=== PATIENT | female | born 1950 | race Two or more races ===

== ENCOUNTER 2017-10-28 14:07 | Observation (INO) | payer MEDICARE, MEDICAID ==
[~2017-10-28] VITALS: Ht 152.4 cm; Wt 74.2 kg
[~2017-10-28 14:07] MED LIST: DICL75TA2 PO; DULO30CA2 PO; HYDR25TA6 PO; LOSA1TAB19 PO; LOSA50TA2 PO; METO25TA35 PO; OMEP40CA6 PO
[2017-10-28] MEDS ORDERED: MORPHINE SULFATE 4 MG/ML, 1ML ONE ×2 (14:46→15:20)
[2017-10-28 14:47] LABS: BASOPHILS # (AUTO) 0.08 x10^3/uL (0-0.1); BASOPHILS % (AUTO) 1 % (0-1); EOSINOPHILS # (AUTO) 0.22 x10^3/uL (0-0.4); EOSINOPHILS % (AUTO) 2 % (1-7); LYMPHOCYTES # (AUTO) 2.49 x10^3/uL (1-3.4); LYMPHOCYTES % (AUTO) 26 % (22-44); MD NO; MEAN CORPUSCULAR HEMOGLOBIN 28.8 pg (27.0-34.8); MEAN CORPUSCULAR HGB CONC 33.5 g/dL (32.4-35.8); MEAN CORPUSCULAR VOLUME 85.8 fL (80-100); MEAN PLATELET VOLUME 8.4 fL (7.4-10.4); MONOCYTES % (AUTO) 4 % (2-9); NEUTROPHILS # (AUTO) 6.38 x10^3/uL (1.8-6.8); NEUTROPHILS % (AUTO) 67 % (42-75); PLATELET COUNT 292 x10^3/uL (130-400); RED BLOOD COUNT 4.53 x10^6/uL (3.82-5.3); RED CELL DISTRIBUTION WIDTH 13.3 % (9.6-15.2)
[2017-10-28] MEDS ORDERED: ONDANSETRON 2MG/ML, 2ML ONE (14:47)
[2017-10-28] MEDS ORDERED: ASPIRIN 81 MG TABLET CHEW ONE (14:47)
[2017-10-28] MEDS: MORPHINE SULFATE 4 MG/ML, 1ML IVPush PRN ×2 (14:53→15:23)
[2017-10-28 14:58] LABS: ALANINE AMINOTRANSFERASE 29 U/L (12-78); ALBUMIN 3.7 g/dL (3.4-5.0); ANION GAP 12 mmol/L (5-15); CALCIUM 8.5 mg/dL (8.5-10.1); CHLORIDE 108 mmol/L (98-107)
[2017-10-28] MEDS ORDERED: SODIUM CHLORIDE FLUSH 10ML SYR IVF ONE (15:00)
[2017-10-28] MEDS ORDERED: ASPIRIN 81 MG TABLET CHEW PO ONE (15:00)
[2017-10-28] MEDS ORDERED: ONDANSETRON 2MG/ML, 2ML IVPush ONE (15:00)
[2017-10-28 15:03] LABS: ALKALINE PHOSPHATASE 97 U/L (45-117); BILIRUBIN,TOTAL 0.5 mg/dL (0.2-1.0); CREATININE 0.77 mg/dL (0.55-1.02); TOTAL PROTEIN 7.4 g/dL (6.4-8.2); TROPONIN I < 0.015 ng/mL (0.000-0.045)
[2017-10-28] MEDS ORDERED: GABA300C10 PO (15:14)
[2017-10-28] MEDS ORDERED: LISI5TAB7 PO (15:15)
[2017-10-28] MEDS ORDERED: ZOLP-413 PO (15:15)
[2017-10-28] MEDS ORDERED: HYDR25TA11 PO (15:16)
[2017-10-28] MEDS ORDERED: DIAZ5TAB4 PO (15:17)
[2017-10-28] MEDS ORDERED: DULO60CA55 PO (15:18)
[2017-10-28] MEDS ORDERED: KETOROLAC 30 MG/1 ML ONE (16:16)
[2017-10-28] MEDS ORDERED: CYCLOBENZAPRINE 10 MG TABLET ONE (16:16)
[2017-10-28] MEDS ORDERED: KETOROLAC 30 MG/1 ML IVPush ONE (16:30)
[2017-10-28] MEDS ORDERED: CYCLOBENZAPRINE 10 MG TABLET PO ONE (16:30)
[2017-10-28] MEDS ORDERED: HYDROmorphone 1 MG/ML, 1ML ONE (17:24)
[2017-10-28] MEDS ORDERED: HYDROmorphone 1 MG/ML, 1ML IV ONE (17:30)
[2017-10-28 18:40] VITALS: BP 153/71
[2017-10-28 18:50] LABS: MICROSCOPIC AUTO
[2017-10-28 19:00] LABS: CULTURE INDICATED? YES
[2017-10-28 19:34] VITALS: BP 168/80
[2017-10-28] MEDS ORDERED: DOCUSATE 100 MG CAPSULE PO PRN (20:30)
[2017-10-28] MEDS ORDERED: ONDANSETRON 2MG/ML, 2ML IVPush PRN (20:30)
[2017-10-28] MEDS ORDERED: ACETAMINOPHEN 325 MG TABLET PO PRN (20:30)
[2017-10-28] MEDS ORDERED: MAALOX/HYOSCYAMINE/LIDOCAINE 45 ML BTL PO PRN (20:30)
[2017-10-28] MEDS ORDERED: ENALAPRILAT 1.25 MG/ML, 2ML IVPush PRN (20:30)
[2017-10-28] MEDS ORDERED: MAALOX/HYOSCYAMINE/LIDOCAINE 45 ML BTL PO ONE (21:00)
[2017-10-28 21:28] LABS: TROPONIN I < 0.015 ng/mL (0.000-0.045)
[2017-10-28] MEDS: ZOLPIDEM 5MG TABLET PO SCH (21:52)
[2017-10-28] MEDS: DIAZEPAM 5 MG TABLET PO SCH (21:52)
[2017-10-28] MEDS: GABAPENTIN 300 MG CAPSULE PO SCH (21:52)
[2017-10-29 01:59] VITALS: BP 128/71
[2017-10-29 02:42] LABS: TROPONIN I < 0.015 ng/mL (0.000-0.045)
[2017-10-29 08:00] VITALS: BP 123/72
[2017-10-29] MEDS ORDERED: REGADENOSON 0.4 MG/5 ML SYRINGE ONE (08:41)
[2017-10-29] MEDS: DULOXETINE 30 MG CAPSULE.DR PO SCH (10:15)
[2017-10-29] MEDS: LISINOPRIL 5 MG TABLET PO SCH (10:15)
[2017-10-29] MEDS: GABAPENTIN 300 MG CAPSULE PO SCH ×3 (10:15→20:39)
[2017-10-29 14:00] VITALS: BP 112/63
[2017-10-29] MEDS ORDERED: LIDODERM 5% PATCH TD SCH (14:00)
[2017-10-29] MEDS ORDERED: IBUPROFEN 200 MG TABLET PO PRN (17:00)
[2017-10-29] MEDS: ACETAMINOPHEN 500 MG TABLET PO SCH (18:02)
[2017-10-29 20:00] VITALS: BP 113/68
[2017-10-29] MEDS: ZOLPIDEM 5MG TABLET PO SCH (20:39)
[2017-10-29] MEDS: DIAZEPAM 5 MG TABLET PO SCH (20:39)
[2017-10-30] MEDS: ACETAMINOPHEN 500 MG TABLET PO SCH ×2 (01:45→09:09)
[2017-10-30 02:00] VITALS: BP 114/64
[2017-10-30 06:40] VITALS: BP 119/62
[2017-10-30] MEDS ORDERED: Lidoderm 5% Patch TD (07:01)
[2017-10-30] MEDS ORDERED: FLU VACC QS2017-18 (36MOS+) UP/PF 0.5 ML IM-VACC ONE (08:30)
[2017-10-30] MEDS ORDERED: PNEUMOCOCCAL 23 VACCINE IM-VACC ONE (08:30)
[2017-10-30] MEDS: LISINOPRIL 5 MG TABLET PO SCH (09:09)
[2017-10-30] MEDS: GABAPENTIN 300 MG CAPSULE PO SCH (09:09)
[2017-10-30] MEDS: DULOXETINE 30 MG CAPSULE.DR PO SCH (09:09)
[2017-10-30 12:02] VITALS: BP 121/66
== END 2017-10-30 12:45 | disposition home or self-care (01) ==
LOC: ED 14:47 → EDIP 17:24 → INTOOBSV 17:24 → 4EST 18:13 → DCLOUNGE 10-30 12:35
PROVIDERS: ADMIT Internal Medicine; ATTEND Internal Medicine
DX: R07.89 Other chest pain (principal); I11.9 Hypertensive heart disease without heart failure; I16.0 Hypertensive urgency; I25.10 Atherosclerotic heart disease of native coronary artery without angina pectoris; E78.5 Hyperlipidemia, unspecified; E11.9 Type 2 diabetes mellitus without complications; M19.90 Unspecified osteoarthritis, unspecified site; G43.909 Migraine, unspecified, not intractable, without status migrainosus; G89.29 Other chronic pain; M51.36 Other intervertebral disc degeneration, lumbar region; F33.9 Major depressive disorder, recurrent, unspecified; Z82.49 Family history of ischemic heart disease and other diseases of the circulatory system; M54.42 Lumbago with sciatica, left side
CPT/HCPCS: 36415; 71045; 72110; 78452; 80053; 81001; 84484; 85025; 87086; 90471; 90472; 90686; 90732; 93005; 93017; 93306; 96374; 96375; 96376; 97161; 97530; 99285; A9502; C9898; G0378; G8978; G8979; G8980; J1170; J1885; J2405; J2785; Q0177

== ENCOUNTER 2018-08-22 10:58 | Emergency (ER) | payer MEDICARE, MEDICAID ==
[~2018-08-22] VITALS: Ht 152.4 cm; Wt 73.8 kg
[~2018-08-22 10:58] MED LIST changes: +DIAZ5TAB4 PO; +DULO60CA55 PO; +GABA300C10 PO; +HYDR25TA11 PO; +LISI5TAB7 PO; +Lidoderm 5% Patch TD; +ZOLP-413 PO
[2018-08-22 11:50] LABS: BASOPHILS # (AUTO) 0.02 x10^3/uL (0-0.1); BASOPHILS % (AUTO) 0 % (0-1); EOSINOPHILS # (AUTO) 0.13 x10^3/uL (0-0.4); EOSINOPHILS % (AUTO) 1 % (1-7); LYMPHOCYTES # (AUTO) 1.62 x10^3/uL (1-3.4); LYMPHOCYTES % (AUTO) 17 % (22-44); MD NO; MEAN CORPUSCULAR HEMOGLOBIN 29.8 pg (27.0-34.8); MEAN CORPUSCULAR HGB CONC 33.8 g/dL (32.4-35.8); MEAN CORPUSCULAR VOLUME 88.1 fL (80-100); MEAN PLATELET VOLUME 8.8 fL (7.4-10.4); MONOCYTES # (AUTO) 0.34 x10^3/uL (0.2-0.8); MONOCYTES % (AUTO) 4 % (2-9); NEUTROPHILS # (AUTO) 7.62 x10^3/uL (1.8-6.8); NEUTROPHILS % (AUTO) 78 % (42-75); PLATELET COUNT 295 x10^3/uL (130-400); RED BLOOD COUNT 4.61 x10^6/uL (3.82-5.3); RED CELL DISTRIBUTION WIDTH 14.5 % (9.6-15.2)
[2018-08-22 11:54] LABS: MICROSCOPIC AUTO
[2018-08-22 12:00] LABS: CULTURE INDICATED? YES
[2018-08-22 12:08] LABS: ALANINE AMINOTRANSFERASE 27 U/L (12-78); ALBUMIN 3.7 g/dL (3.4-5.0); ANION GAP 8 mmol/L (5-15); CALCIUM 9.1 mg/dL (8.5-10.1); CHLORIDE 110 mmol/L (98-107)
[2018-08-22 12:11] LABS: ALKALINE PHOSPHATASE 100 U/L (45-117); BILIRUBIN,TOTAL 0.8 mg/dL (0.2-1.0); CREATININE 0.89 mg/dL (0.55-1.02); TOTAL PROTEIN 7.6 g/dL (6.4-8.2)
[2018-08-22] MEDS ORDERED: MORPHINE SULFATE 4 MG/ML, 1ML ONE (13:14)
[2018-08-22] MEDS ORDERED: KETOROLAC 30 MG/1 ML ONE (13:16)
[2018-08-22] MEDS ORDERED: OMNIPAQUE 350 MG/ML, 100ML BOTTLE ONE (13:21)
[2018-08-22] MEDS ORDERED: KETOROLAC 30 MG/1 ML IVPush ONE (13:30)
[2018-08-22 14:03] VITALS: BP 184/108
== END 2018-08-22 14:51 | disposition home or self-care (01) ==
LOC: ED 14:26
DX: R10.32 Left lower quadrant pain (principal); R07.0 Pain in throat; R11.2 Nausea with vomiting, unspecified; I10 Essential (primary) hypertension; F41.1 Generalized anxiety disorder; F32.9 Major depressive disorder, single episode, unspecified
CPT/HCPCS: 36415; 74177; 80053; 81001; 83690; 85025; 87086; 93005; 96374; 99284; J1885; Q9967

== ENCOUNTER 2018-09-21 09:20 | Emergency (ER) | payer MEDICARE, MEDICAID ==
[~2018-09-21] VITALS: Ht 162.6 cm; Wt 71.8 kg
[2018-09-21 09:33] VITALS: BP 180/84
--- NOTE | 2018-09-21 10:01 | NUR ---
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
--- NOTE | 2018-09-21 10:10 | NUR ---
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 BIB [facility] FROM PT. DO FOR C/O ENTIRE LEFT SIDE PAIN/WEAKNESS/DECREASED SENSATION SINCE 1999 LAST NIGHT. PT. DOES AMBULATE WITH STEADY GAIT. PT. HAS EQUAL HEALTHCARE INTERPRETER STRENGHT AND MOVES ALL EXTREMITIES EQUALLY. PT. C/O CHROIC BILAT SHOULER PAIN. A&O X 4. EKG WAS COMPLETED ON ARRIVAL AND PRESENTED TO ERMD. JENNI ROJAS WAS IN TO EVAL PT. AND DISCUSS POC. PT. WAS PLACED ON CONTINUOUS PULSE OX, B/P, AND HEART MONITORS AND CHANGED INTO GOWN. CALL LIGHT IN REACH. ALL SAFETY MEASUERS OBSERVED. REPORT TO CHELY ANN.
[2018-09-21] MEDS ORDERED: KETOROLAC 30 MG/1 ML IM/IV ONE (10:30)
[2018-09-21] MEDS ORDERED: METHOCARBAMOL 750 MG TABLET PO ONE (10:30)
[2018-09-21] MEDS ORDERED: METHOCARBAMOL 750 MG TABLET ONE (10:42)
[2018-09-21] MEDS ORDERED: KETOROLAC 30 MG/1 ML ONE (10:42)
== END 2018-09-21 12:57 ==
LOC: ED 11:01
DX: M51.36 Other intervertebral disc degeneration, lumbar region (principal); M46.1 Sacroiliitis, not elsewhere classified; M25.512 Pain in left shoulder; F41.1 Generalized anxiety disorder; F32.9 Major depressive disorder, single episode, unspecified; I10 Essential (primary) hypertension
CPT/HCPCS: 72110; 93005; 96372; 99283; J1885